=== PATIENT | female | born 1995 | race Caucasian/White ===

== ENCOUNTER 2019-09-21 22:56 | Emergency (ER) | payer MEDICAID, OTHER ==
[~2019-09-21] VITALS: Ht 170.2 cm; Wt 48.6 kg
[2019-09-22 01:25] LABS: Basophils # (auto) 0 uL; Basophils % (auto) 0.3 % (0.0-2.0); Eosinophils # (auto) 0.1 uL; Eosinophils % (auto) 0.9 % (0.0-7.0); Hematocrit 43.5 % (36.0-46.0); Hemoglobin 14.5 g/dL (12.2-16.2); Lymphocytes # (auto) 2.1 uL; Lymphocytes % (auto) 19.2 % (10.0-50.0); Mean Corpuscular Hemoglobin 31.3 pg (28.0-32.0); Mean Corpuscular Hgb Conc. 33.2 g/dL (32.0-36.0); Mean Corpuscular Volume 94.1 fL (80.0-100.0); Monocytes # (auto) 0.7 uL; Monocytes % (auto) 6.1 % (0.0-12.0); Neutrophils # (auto) 8.1 uL; Neutrophils % (auto) 73.5 % (37.0-80.0); Nucleated Red Blood Cells % 0.1 %; Platelet Count (auto) 216 10^3/uL (140-450); Red Blood Cells 4.63 10^6/uL (4.0-5.20); Red Cell Distribution Width 12.6 % (11.8-14.3)
[2019-09-22 01:34] LABS: Urine Bacteria MOD /hpf (None Seen); Urine Blood 2+ /uL (Negative); Urine Mucus FEW (None Seen); Urine Specific Gravity 1.018 (1.001-1.035); Urine WBC 20 /hpf (0 - 5)
[2019-09-22 01:45] LABS: Alanine Aminotransferase 22 U/L (13-56); Albumin 3.5 g/dL (3.4-5.0); Anion Gap 5 (5-15); Aspartate Aminotransferase 14 U/L (15-37); BUN/Creatinine Ratio 25.4; Blood Urea Nitrogen 17 mg/dL (7-18); Calcium 8.5 mg/dL (8.5-10.1); Carbon Dioxide 27 mmol/L (21-32); Chloride 103 mmol/L (98-107); GFR African American 138 mL/min; GFR Non-African American 114 mL/min; Glucose 105 mg/dL (74-106); Magnesium 2.1 mg/dL (1.6-2.6); Potassium 3.7 mmol/L (3.5-5.1); Sodium 135 mmol/L (136-145)
[2019-09-22 01:50] LABS: Alkaline Phosphatase 63 U/L (45-117); Bilirubin, Total 0.3 mg/dL (0.2-1.0)
[2019-09-22 02:00] VITALS: BP 106/72
[2019-09-22 02:07] LABS: INR 1.05 (0.9-1.15); Partial Thromboplastin Time 25.3 sec (23.64-32.05)
== END 2019-09-22 02:49 | disposition home or self-care (01) ==
LOC: ER 22:56
DX: R07.89 Other chest pain (principal); F41.9 Anxiety disorder, unspecified
CPT/HCPCS: 36415; 80053; 81001; 81025; 83605; 83735; 84443; 84484; 85025; 85610; 85730; 93005

== ENCOUNTER 2020-04-11 16:03 | Emergency (ER) | payer MEDICAID ==
[~2020-04-11] VITALS: Ht 167.6 cm; Wt 47.6 kg
[2020-04-11 16:43] VITALS: BP 122/85
[2020-04-11] MEDS ORDERED: IBUPROFEN 600 MG TAB PO ONE (18:15)
== END 2020-04-11 18:27 | disposition home or self-care (01) ==
LOC: ER 16:03
DX: M25.462 Effusion, left knee (principal); M79.605 Pain in left leg; Z91.018 Allergy to other foods
CPT/HCPCS: 73562; 93971

== ENCOUNTER 2023-01-25 11:41 | Emergency (ER) | payer MEDICAID ==
[~2023-01-25] VITALS: Ht 167.6 cm; Wt 52.4 kg
[2023-01-25 12:47] LABS: Basophils # (auto) 0 10 ^3/uL (0-0.2); Basophils % (auto) 0.5 % (0.0-2.0); Eosinophils # (auto) 0.1 10 ^3/uL (0-0.8); Eosinophils % (auto) 1.8 % (0.0-7.0); Hematocrit 44.2 % (36.0-46.0); Hemoglobin 14.7 g/dL (12.2-16.2); Lymphocytes # (auto) 2.2 10 ^3/uL (0.4-5.4); Lymphocytes % (auto) 36.5 % (10.0-50.0); Mean Corpuscular Hemoglobin 31.3 pg (28.0-32.0); Mean Corpuscular Hgb Conc. 33.2 g/dL (32.0-36.0); Mean Corpuscular Volume 94.3 fL (80.0-100.0); Monocytes # (auto) 0.5 10 ^3/uL (0-1.3); Monocytes % (auto) 7.6 % (0.0-12.0); Neutrophils # (auto) 3.2 10 ^3/uL (1.6-8.6); Neutrophils % (auto) 53.6 % (37.0-80.0); Nucleated Red Blood Cells % 0.1 %; Red Blood Cells 4.69 10^6/uL (4.0-5.20); Red Cell Distribution Width 13.5 % (11.8-14.3); White Blood Cell 6.1 10^3/uL (4.4-10.8)
[2023-01-25 12:56] VITALS: BP 107/73
[2023-01-25 12:57] LABS: Urine Bacteria FEW /hpf (None Seen); Urine Blood 3+ /uL (Negative); Urine Specific Gravity 1.024 (1.001-1.035); Urine WBC 129 /hpf (0 - 5)
[2023-01-25 13:32] LABS: BUN/Creatinine Ratio 28.4 (10.0-20.0); Calcium 8.9 mg/dL (8.5-10.1); Potassium 3.8 mmol/L (3.5-5.1)
== END 2023-01-25 13:58 | disposition home or self-care (01) ==
LOC: ER 11:41
DX: Z32.02 Encounter for pregnancy test, result negative (principal); R10.2 Pelvic and perineal pain; N92.0 Excessive and frequent menstruation with regular cycle; F12.10 Cannabis abuse, uncomplicated; Z91.013 Allergy to seafood
CPT/HCPCS: 36415; 80048; 81001; 81025; 84702; 85025